=== PATIENT | female | born 1950 | race Caucasian/White ===

== ENCOUNTER → 2023-08-10 14:14 | Outpatient (REF) | payer MEDICARE, SELFPAY | LOC: WDC 14:14 | PROVIDERS: ATTENDING PHYSICIAN Internal Medicine | DX: Z12.31 Encounter for screening mammogram for malignant neoplasm of breast (principal); Z78.0 Asymptomatic menopausal state | CPT/HCPCS: 77063; 77067; 77080 ==

== ENCOUNTER → 2024-01-09 16:26 | Outpatient (REF) | payer MEDICARE, SELFPAY | LOC: RAD 16:26 | PROVIDERS: ATTENDING PHYSICIAN Hospitalist | DX: M79.652 Pain in left thigh (principal) | CPT/HCPCS: 73502 ==

== ENCOUNTER → 2024-06-06 16:29 | Outpatient (REF) | payer OTHER, SELFPAY | LOC: RAD 16:29 | PROVIDERS: ATTENDING PHYSICIAN Hospitalist | DX: M79.89 Other specified soft tissue disorders (principal); M79.669 Pain in unspecified lower leg | CPT/HCPCS: 93971 ==

== ENCOUNTER → 2024-10-04 13:39 | Outpatient (REF) | payer OTHER, SELFPAY | LOC: WDC 13:39 | PROVIDERS: ATTENDING PHYSICIAN Hospitalist | DX: Z12.31 Encounter for screening mammogram for malignant neoplasm of breast (principal) | CPT/HCPCS: 77063; 77067 ==